=== PATIENT | female | born 1965 | race Two or more races ===

== ENCOUNTER 2024-07-17 16:39 | Emergency (ER) | payer BC ==
[~2024-07-17] VITALS: Ht 149.9 cm; Wt 71.2 kg
[2024-07-17] MEDS ORDERED: AMLO5TAB4 (16:52)
[2024-07-17] MEDS ORDERED: INSU100I26 (16:52)
[2024-07-17] MEDS ORDERED: LABE100T5 (16:52)
[2024-07-17] MEDS ORDERED: HYDR-4077 (16:52)
[2024-07-17] MEDS ORDERED: CEPH500T PO (18:39)
[2024-07-17] MEDS ORDERED: CEFTRIAXONE 1 G VIAL ONE (18:40)
[2024-07-17] MEDS ORDERED: LIDOCAINE HCL 1% 20 ML VIAL ONE (18:41)
[2024-07-17] MEDS: CEFTRIAXONE 1 G VIAL IM ONE (18:53)
[2024-07-17 18:59] VITALS: BP 168/85; TEMP 97.3; O2SAT 97
== END 2024-07-17 19:00 | disposition home or self-care (01) ==
LOC: ER 16:39
DX: L03.115 Cellulitis of right lower limb (principal); M25.461 Effusion, right knee; M25.561 Pain in right knee; E11.9 Type 2 diabetes mellitus without complications; E78.00 Pure hypercholesterolemia, unspecified; Z90.710 Acquired absence of both cervix and uterus; Z79.899 Other long term (current) drug therapy
CPT/HCPCS: 99285; 93971; 73564; 96372; J0696; J3490; A4606; A4663

== ENCOUNTER 2025-03-25 16:43 | Emergency (ER) | payer BC, OTHER ==
[~2025-03-25] VITALS: Ht 149.9 cm; Wt 72.6 kg
[~2025-03-25 16:43] MED LIST: AMLO5TAB4; CEPH500T PO; HYDR-4077; INSU100I26; LABE100T5
[2025-03-25] MEDS ORDERED: CEFD300C3 PO (18:51)
[2025-03-25 19:13] VITALS: BP 128/82; TEMP 98.4; O2SAT 98
== END 2025-03-25 19:12 | disposition home or self-care (01) ==
LOC: ER 16:57
DX: L03.116 Cellulitis of left lower limb (principal); E11.9 Type 2 diabetes mellitus without complications; E78.5 Hyperlipidemia, unspecified; I10 Essential (primary) hypertension; Z90.710 Acquired absence of both cervix and uterus
CPT/HCPCS: A4606; A4663

== ENCOUNTER 2025-04-01 16:12 | Emergency (ER) | payer OTHER ==
[~2025-04-01] VITALS: Ht 149.9 cm; Wt 73.0 kg
[~2025-04-01 16:12] MED LIST changes: +CEFD300C3 PO
[2025-04-01 16:40] LABS: PLATELET COUNT (AUTO) 269 K/uL (179-408); RED BLOOD CELL COUNT(AUTO) 4.32 MIL/uL (3.63-4.92); RED CELL DISTRIBUTION WIDTH 13.2 % (12.3-17.7); WHITE BLOOD COUNT (AUTO) 9.4 K/uL (3.8-11.8)
[2025-04-01 16:48] LABS: CREATININE 0.7 mg/dL (0.6-1.3); SODIUM SERUM 140.0 mmol/L (136-145); UREA NITROGEN, BLOOD 16.0 mg/dL (7-18)
[2025-04-01] MEDS ORDERED: POTASSIUM BICARBONATE/CIT AC 25 MEQ TABLET.EFF ONE (17:05)
[2025-04-01] MEDS: POTASSIUM BICARBONATE/CIT AC 25 MEQ TABLET.EFF PO ONE (17:10)
[2025-04-01] MEDS ORDERED: [UNRECOGNIZED DRUG - SUPPLY] (17:51)
[2025-04-01 18:14] VITALS: BP 134/88; O2SAT 97
== END 2025-04-01 18:15 | disposition home or self-care (01) ==
LOC: ER 16:16
DX: R60.0 Localized edema (principal); E87.6 Hypokalemia; M79.605 Pain in left leg; E11.9 Type 2 diabetes mellitus without complications; E78.5 Hyperlipidemia, unspecified; Z90.710 Acquired absence of both cervix and uterus; Z87.2 Personal history of diseases of the skin and subcutaneous tissue
CPT/HCPCS: 36415; 85025; A4606; A4663